=== PATIENT | female | born 1960 ===

== ENCOUNTER 2023-03-01 10:32 | Day surgery (SDC) | payer MEDICARE, OTHER ==
[~2023-03-01] VITALS: Ht 170.2 cm; Wt 70.0 kg
[2023-03-01] MEDS ORDERED: ATOR40TA (11:10)
[2023-03-01] MEDS ORDERED: Isosorbide Mono30 MG (11:11)
[2023-03-01] MEDS ORDERED: METO50ER (11:11)
[2023-03-01] MEDS ORDERED: Aspir 8181 MG (11:12)
[2023-03-01] MEDS ORDERED: NORT10 (11:12)
--- NOTE | 2023-03-01 13:10 | NUR ---
03/01/23 1310 Berkley Ortiz 5ML OF LIDOCAINE 2% WITH EPI 1:100,000 MIXED 1:1 WITH NORMAL SALINE TO MAKE LIDOCAINE 1% WITH EPI 1:200,000 FOR INJECTION AT THE OPSITE BY DR CUMMINS. 2ML INJECTED.
--- NOTE | 2023-03-01 14:54 | NUR ---
03/01/23 1454 Radha Wiley ED AND ZURI IN ROOM WITH PT.
== END 2023-03-01 15:13 | disposition home or self-care (01) ==
LOC: ORSCSDS 10:32
PROVIDERS: Otolaryngology
PROC: 0GTH0ZZ Resection of Right Thyroid Gland Lobe, Open Approach (ICD-10-PCS; principal; 2023-03-01 12:00)
DX: E04.1 Nontoxic single thyroid nodule (principal); I25.10 Atherosclerotic heart disease of native coronary artery without angina pectoris; G47.33 Obstructive sleep apnea (adult) (pediatric); M32.9 Systemic lupus erythematosus, unspecified; F17.210 Nicotine dependence, cigarettes, uncomplicated; Z79.899 Other long term (current) drug therapy; Z79.82 Long term (current) use of aspirin
CPT/HCPCS: 88307; A9270; J1100; J2250; J2371; J2405; J2704; J3010; J7120

== ENCOUNTER → 2025-04-07 | Outpatient (CLI) | payer MEDICARE, OTHER ==
[~2025-04-07] MED LIST: ATOR40TA; Aspir 8181 MG; Isosorbide Mono30 MG; METO50ER; NORT10
[2025-04-07 16:36] LABS: Bacterial Vaginosis PCR Negative (NEGATIVE); Candida Group, PCR NOT DETECTED (NOT DETECT); Candida glabrata-krusei, PCR NOT DETECTED (NOT DETECT)
== END ==
LOC: LAB 13:59 → LAB SHORT 13:59
PROVIDERS: Advanced Practice Midwife
DX: N76.0 Acute vaginitis (principal)
CPT/HCPCS: 81515